=== PATIENT | male | born 2000 | race Caucasian/White ===

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

== ENCOUNTER 2021-12-15 12:46 | Emergency (ER) | payer OTHER ==
[~2021-12-15] VITALS: Ht 175.3 cm; Wt 90.7 kg
[2021-12-15] MEDS ORDERED: CEPH500 PO (15:56)
[2021-12-15] MEDS ORDERED: HYDR1TAB94 PO (15:56)
== END 2021-12-15 16:08 | disposition home or self-care (01) ==
LOC: ER 12:46
DX: S62.631B Displaced fracture of distal phalanx of left index finger, initial encounter for open fracture (principal); W23.0XXA Caught, crushed, jammed, or pinched between moving objects, initial encounter; Y99.0 Civilian activity done for income or pay
CPT/HCPCS: 11760; 73140; 90471; 90714; 99283-25